=== PATIENT | male | born 1980 ===

== ENCOUNTER 2024-06-08 13:57 | Emergency (ER) | payer OTHER, SELFPAY ==
[2024-06-08] VITALS (7 sets, daily range): BP systolic 120–144; BP diastolic 72–96; PULSE 61–80; RESP 16–27; O2SAT 99–100
--- NOTE | ~2024-06-08 | XR_ITS ---
XR chest 2V Ordering provider: Eric Merchant APRN History: 44 years Male with . dyspnea,left sided cp w/movement,started today,no cardiac hx . Comparison: None. FINDINGS: MEDIASTINUM: The cardiac silhouette is not enlarged. LUNGS: No infiltrates, effusions or pneumothorax. OTHER: No free air under the diaphragm. IMPRESSION: No acute cardiopulmonary pathology. Reviewed, dictated and finalized at location A.
--- NOTE | ~2024-06-08 | CT_ITS ---
CTA chest PE protocol Ordering provider: Eric Merchant APRN History: 44 years Male with . sob/cp/elevated d-dimer . Comparison: None. Technique: CT angiogram chest was performed following timed intravenous injection of contrast. Thin s lice axial images and reformatted coronal images were obtained. Three dimensional reformatted images of the chest were also obtained using a [employer] workstation. . Automated exposure control and iterati ve reconstruction technique were employed. The dose-length product was 632.19 mGy-cm. 100 mL Omnipaqu e 350 was given IV. Findings: PULMONARY ARTERIES: No pulmonary embolus. VISUALIZED THORACIC INLET: Normal. MEDIASTINUM: Aorta/coronary arteries: Mild atheromatous disease. Heart/other: The heart is not enlarged. Lymph nodes: No mediastinal or hilar adenopathy. LUNGS: No pulmonary masses. 5 mm nodule is seen in the right lower lobe adjacent to the oblique fissure. 6-[address] follow-up advised. No infiltrates or effusions. No pneumothorax. VISUALIZED UPPER ABDOMEN: Narrowing seen at the origin of the celiac and superior mesenteric arteries . Further evaluation advised. Otherwise, the visualized upper abdomen is normal. MUSCULOSKELETAL: Soft tissues: The superficial soft tissues are normal. Bones: Normal spine. IMPRESSION: 1. No pulmonary embolism. 2. No acute cardiopulmonary pathology. 3. 5 mm nodule in the right lower lobe. Follow-up CT at 6-12 months advised. 4. 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 Clinical correlation advi sed. Reviewed, dictated and finalized at location A. IMPRESSION: 1. No pulmonary embolism. 2. No acute cardiopulmonary pathology. 3. 5 mm nodule in the right lower lobe. Follow-up CT at 6-12 months advised. 4. 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 Cli nical correlation advised.
--- NOTE | 2024-06-08 14:00 | ED.CHESTPAIN ---
HPI - Chest Pain General Chief Complaint: Chest Pain Stated Complaint: Chest Pain, Left Side Numbness Time Seen by Provider: 06/08/24 14:00 Source: patient Mode of arrival: ambulatory Limitations: no limitations History of Present Illness HPI narrative: Balaji 44-year-old male patient presenting to the emergency room today with complaints of left sided chest pain and shortness of breath. He reports chest pain started approximately 1 hour ago. States that is on the left side of his chest and sharp and nonradiating. He rates his pain currently an 8/10. He denies any heavy lifting. Does report some shortness of breath on exertion. History of ADHD and takes Adderall. Did not take his Adderall this morning. Took ASA when symptoms started. No cardiac history. Has had this happen before an he took ASA and the pain went away. Related Data Allergies Allergy/AdvReac Type Severity Reaction Status Date / Time No Known Allergies Allergy Mild Unverified 09/29/05 13:11 PMFSH Comments At the time of my signature, I reviewed and agree with the nursing past medical, surgical, social, and family history. There is no relevant family history pertinent to the patient complaint. Exam Narrative: General: Well-developed, well nourished, in no apparent distress Head: Normocephalic, atraumatic. Chest wall: Even rise and fall of the chest wall, no bruising or swelling visualized, pain reproducible with palpation over the left anterior chest wall Cardio: Regular rate and rhythm, s1 and s2 normal, no murmur appreciated. Resp: Clear to auscultation bilaterally, no rhonchi, rales, wheezing or rubs. Extremities: No deformity, no edema, no cyanosis, capillary refill less than 2 seconds, peripheral pulses palpable and strong. Integumentary: [place], warm, and dry, intact without lesion, no rashes. Course Course Emergency Course: Portions of this record may have been created with voice recognition software. Vital Signs Vital signs: Vital Signs Pulse Rate 77 06/08/24 14:04 Respiratory Rate 27 H 06/08/24 14:04 Blood Pressure 144/96 H 06/08/24 14:04 Pulse Oximetry 99 06/08/24 14:04 Oxygen Delivery Room Air 06/08/24 14:04 Pulse Rate 67 06/08/24 18:01 Respiratory Rate 17 06/08/24 18:01 Blood Pressure 122/82 06/08/24 18:01 Pulse Oximetry 100 06/08/24 18:01 Oxygen Delivery Room Air 06/08/24 14:18 Vital signs reviewed MDM - Chest Pain MDM Narrative Medical decision making narrative: At the time of visit patient is resting comfortably on the exam table. Patient appears to be nontoxic. EKG: EKG shows normal sinus rhythm with heart rate of 64 beats per minute. No ST elevation, depression, or T-wave inversion noted. 3 hours EKG shows no changes. Labs: CBC shows white blood cell count of 4.0, H&H of 15.7 and 45 , platelet count is 285, PT is 12.6, INR 0.9, APTT is 30, D-dimer is elevated 0.77, chemistry panel shows sodium 139, potassium 3.8, chloride of 103, carbon dioxide 26, BUN is 7, creatinine 0.7, GFR is greater than 60, AST is 42, ALT is elevated at 61, normal alk-phos of 51, initial troponin is pending Diagnostics: Chest x-rays negative for any acute cardiopulmonary process. CT chest shows 1. No pulmonary embolism. 2. No acute cardiopulmonary pathology. 3. 5 mm nodule in the right lower lobe. Follow-up CT at 6-12 months advised. 4. 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 Clinical correlation advised Plan: Heart score 1. EKGs are reassuring, troponins are negative, chest pain is reproducible upon palpation, I suspect patient has acute chest wall pain / costochondritis. Recommend follow-up with his primary care regarding pulmonary nodule and narrowing of his celiac and mesenteric arteries- will need to have lipid panel performed. Supportive measures were discussed with the patient and they voiced understanding discharge instructions and agrees to treatment plan. Retur
--- NOTE | 2024-06-08 14:08 | ECG_ITS ---
Test Date: 2024-06-08 14:04:04 Measurements Intervals [place] Rate: 64 P: 26 SD: 157 QRS: 30 QRSD: 89 T: 51 QT: 393 QTc: 406 Interpretive Statements SINUS RHYTHM BASELINE WANDER- II, III, AVL, AVF NORMAL ECG No previous ECG available for comparison Electronically Signed On 06-08-2024 19:29:58 CDT by Pranav Lechuga D.O.
[2024-06-08 14:25] LABS: Eosinophils Absolute Auto 0.2 K/mm3 (0-0.3); Eosinophils Percent Auto 5.5 % (0-4.4); Hemoglobin 15.7 g/dL (14.0-18.0); Immature Granulocyte Absolute 0.01 K/mm3 (0.00-0.031); Immature Granulocyte Percent A 0.2 % (0-0.5); Lymphocytes Percent Auto 39.9 % (18.3-44.2); Mean Corpuscular HGB Conc 34.9 g/dl (32-36); Mean Corpuscular Hemoglobin 30.8 pg (26-34); Mean Corpuscular Volume 88.4 fl (80-100); Mean Platelet Volume 8.9 fl (7.4-10.4); Monocytes Absolute Auto 0.6 K/mm3 (0.1-0.6); Neutrophils Absolute Auto 1.5 K/mm3 (1.3-6.7); Neutrophils Percent Auto 38.4 % (45.5-73.1); Platelet Count Result 285 k/mm3 (150-375); Red Blood Count 5.09 M/mm3 (4.6-6.20); Red Cell Distribution Width 12.9 % (11.5-14.5)
[2024-06-08 14:33] LABS: INR 0.9; Prothrombin Time 12.6 Seconds (11.1-14.7)
[2024-06-08 14:36] LABS: Alanine Aminotransferase 61 U/L (6-50); Albumin Level 4.1 g/dL (3.5-5.1); Alkaline Phosphatase 51 U/L (38-126); Anion Gap 10 mmol/L (4-12); Aspartate Amino Transferase 42 U/L (17-59); Bilirubin,Total 0.5 mg/dL (0.2-1.3); Blood Urea Nitrogen 7 mg/dL (9-20); Calcium 8.8 mg/dL (8.4-10.2); Carbon Dioxide 26 mmol/L (22-30); Chloride 103 mmol/L (98-107); Estimated CRCL calculation 125 ml/min; Estimated Glomerular Filt Rate > 60; Glucose 106 mg/dL (65-110); Potassium 3.8 mmol/L (3.4-5.0); Sodium 139 mmol/L (137-145)
[2024-06-08 14:38] LABS: D Dimer 0.77 ug/mL (<0.48)
[2024-06-08 14:47] LABS: Troponin I < 0.012 ng/mL (0.000-0.034)
--- NOTE | 2024-06-08 17:13 | ECG_ITS ---
Test Date: 2024-06-08 17:14:58 Measurements Intervals [place] Rate: 47 P: 23 [place]: 157 QRS: 38 QRSD: 90 T: 40 QT: 435 QTc: 388 Interpretive Statements SINUS BRADYCARDIA ABNORMAL ECG Compared to ECG 06/08/2024 14:04:04 HEART RATE HAS DECREASED Electronically Signed On 06-08-2024 19:30:49 CDT by Pranav Lechuga D.O.
[2024-06-08 17:42] LABS: Troponin I < 0.012 ng/mL (0.000-0.034)
== END 2024-06-08 18:25 | disposition home or self-care (01) ==
PROVIDERS: Emergency Provider Nurse Practitioner Family
DX: R07.89 Other chest pain (principal); F90.9 Attention-deficit hyperactivity disorder, unspecified type; Z79.899 Other long term (current) drug therapy
CPT/HCPCS: 36415; 71046; 71275; 80053; 84484; 85025; 85380; 85610; 85730; 93005; 99284; Q9967